=== PATIENT | male | born 1960 | race Caucasian/White ===

== ENCOUNTER 2020-03-19 14:07 | Inpatient (IN) ==
[2020-03-19] MEDS ORDERED: SODIUM CHLORIDE 0.9% 1,000 ML IV STA ×2 (14:35→16:30)
[2020-03-19 14:37] LABS: Basophils # 0.1 10*3/uL (0.0-0.2); Basophils % 0.4 % (0.0-0.8); Eosinophils # 0.1 10*3/uL (0.0-0.87); Eosinophils % 0.3 % (0.00-10.9); Hematocrit 32.4 VOL% (42.0-52.0); Hemoglobin 11.2 GM/DL (14.0-18.0); Immature Granulocytes % 1.3 %; Immature Granulocytes Absolute 0.22 #; Lymphocytes # 0.8 10*3/uL (1.4-4.0); Lymphocytes % 4.6 % (21.2-54.2); Mean Corpuscular HGB Conc 34.6 GM/DL (32-36); Mean Corpuscular Volume 89.8 FL (87-102); Mean Platelet Volume 9.5 FL (9.6-12.0); Monocytes % 10.5 % (1.7-12.7); Neutrophils % 82.9 % (38.7-73.9); Platelet Count 270 T/CUMM (130-400); Red Blood Count 3.61 MC/CUMM (3.8-5.5); Red Cell Distribution Width 12.1 % (9.3-17.3); White Blood Count 16.4 T/CUMM (4-12)
[2020-03-19] MEDS ORDERED: CLINDAMYCIN INJ 900 MG in PREMIX 1 EACH IV STA (14:37)
[2020-03-19] MEDS ORDERED: MORPHINE 4 MG/1 ML VIAL IV STA (14:52)
[2020-03-19 15:05] LABS: Albumin 2.2 G/DL (3.4-5.0); Bilirubin,Total 0.9 MG/DL (0.2-1.0); Calcium 9.4 MG/DL (8.5-10.1); Osmolality,Calculated 270.4 MOS/KG (273-304); Potassium 4.3 MMOL/L (3.5-5.1); Total Protein 7.4 G/DL (6.4-8.3)
[2020-03-19] MEDS ORDERED: VANCOMYCIN INJ 1,500 MG in SODIUM CHLORIDE 0.9% 250 ML IV ONE (16:01)
[2020-03-19 16:26] LABS: INR 1.2; PT Patient Result 12.4 SECS (9.8-11.9)
[2020-03-19] MEDS ORDERED: ONDANSETRON 4 MG/2 ML VIAL IV PRN (16:31)
[2020-03-19] MEDS ORDERED: VANCOMYCIN 1,000 MG VIAL ONE (16:31)
[2020-03-19] MEDS ORDERED: ETOMIDATE 40 MG/20 ML VIAL IV ONE (16:44)
[2020-03-19] MEDS ORDERED: ROCURONIUM 50 MG/5 ML VIAL IV ONE (16:44)
[2020-03-19] MEDS ORDERED: SODIUM CHLORIDE 0.9% 250 ML IV ONE (16:44)
[2020-03-19] MEDS ORDERED: ONDANSETRON 4 MG/2 ML VIAL ONE (16:44)
[2020-03-19] MEDS ORDERED: LIDOCAINE 2% 5 ML VIAL ONE (16:44)
[2020-03-19] MEDS ORDERED: SUCCINYLCHOLINE 200 MG/10 ML VIAL ONE (16:44)
[2020-03-19] MEDS ORDERED: fentaNYL 100 MCG/2 ML VIAL ONE ×3 (16:44→17:32)
[2020-03-19] MEDS ORDERED: MIDAZOLAM 2 MG/2 ML VIAL ONE (16:45)
[2020-03-19] MEDS ORDERED: PHENYLEPHRINE 10 MG/1 ML VIAL IV ONE (16:45)
[2020-03-19 16:46] LABS: Lymphocytes 3 % (20-55); Segmented Neutrophils 90 % (50-85); Total Cells Counted 100
[2020-03-19] MEDS ORDERED: ALBUTEROL/IPRATROPIUM 3 ML NEB RESP TX ONE ×2 (17:53→17:56)
[2020-03-19] MEDS: SODIUM CHLORIDE 0.9% 1,000 ML IV SCH (18:09)
[2020-03-19 22:10] LABS: Bacteria,Urine Occasional /HPF (Few); Bilirubin,Urine Negative (Negative); Blood, Urine Moderate mg/dL (Negative); Glucose,Urine (UA) 150 mg/dL (Negative); Ketones,Urine 5 mg/dL (Negative); Nitrite,Urine Negative (Negative); Protein,Urine Negative; RBC,Urine 10 /HPF (0-4); Squamous Epithelial Cell,Urine Occasional /HPF (0-10); Urine Appearance CLEAR (Clear); Urine Color Yellow (Yellow); Urine Specific Gravity 1.039 (1.001-1.035); WBC,Urine 5 /HPF (0-6)
[2020-03-19] MEDS: HYDROmorphone 2 MG/1 ML VIAL IV PRN (23:55)
[2020-03-20] MEDS: CIPROFLOXACIN INJ 400 MG in PREMIX 1 EACH IV SCH ×3 (00:10→18:00)
[2020-03-20] MEDS: metroNIDAZOLE INJ 500 MG in PREMIX 1 EACH IV SCH ×4 (00:10→17:11)
[2020-03-20] MEDS: SODIUM CHLORIDE 0.9% 1,000 ML IV SCH ×3 (02:53→18:03)
[2020-03-20] MEDS: VANCOMYCIN INJ 1,500 MG in SODIUM CHLORIDE 0.9% 500 ML IV SCH ×2 (04:49→15:00)
[2020-03-20 05:56] LABS: Albumin 1.9 G/DL (3.4-5.0); Bilirubin,Total 0.9 MG/DL (0.2-1.0); Calcium 8.8 MG/DL (8.5-10.1); Osmolality,Calculated 276.4 MOS/KG (273-304); Total Protein 6.6 G/DL (6.4-8.3)
[2020-03-20 07:09] LABS: Basophils # 0.1 10*3/uL (0.0-0.2); Basophils % 0.5 % (0.0-0.8); Eosinophils # 0.1 10*3/uL (0.0-0.87); Hematocrit 34.6 VOL% (42.0-52.0); Hemoglobin 11.5 GM/DL (14.0-18.0); Immature Granulocytes % 1.8 %; Immature Granulocytes Absolute 0.25 #; Lymphocytes # 1.5 10*3/uL (1.4-4.0); Lymphocytes % 10.8 % (21.2-54.2); Mean Corpuscular HGB Conc 33.2 GM/DL (32-36); Mean Corpuscular Volume 92.8 FL (87-102); Mean Platelet Volume 9.9 FL (9.6-12.0); Monocytes % 9.9 % (1.7-12.7); Platelet Count 284 T/CUMM (130-400); Red Blood Count 3.73 MC/CUMM (3.8-5.5); Red Cell Distribution Width 12.2 % (9.3-17.3); White Blood Count 13.6 T/CUMM (4-12)
[2020-03-20 07:30] LABS: Band Neutrophils 6 % (0-10); Eosinophils 3 % (0-10); Hypochromasia 1+; Lymphocytes 14 % (20-55); Segmented Neutrophils 73 % (50-85); Total Cells Counted 100
[2020-03-20 07:31] LABS: Microcytosis Slight; Platelet Estimate Normal; Target Cells Slight
[2020-03-20] MEDS ORDERED: GLUCAGON 1 MG VIAL IM PRN (09:00)
[2020-03-20] MEDS ORDERED: DEXTROSE 50% 25 GM/50 ML VIAL IV PRN (09:00)
[2020-03-20] MEDS: ENOXAPARIN 40 MG/0.4 ML SYRINGE SUBCUT SCH (10:09)
[2020-03-20] MEDS: PANTOPRAZOLE 40 MG TABLET PO SCH (10:10)
[2020-03-20] MEDS ORDERED: ALBUTEROL 2.5 MG/3 ML NEB RESP TX PRN (11:53)
[2020-03-20] MEDS: INSULIN LISPRO 100 UNIT/ML SUBCUT SCH ×2 (16:25→21:23)
[2020-03-20] MEDS: MIRTAZAPINE 15 MG TABLET PO SCH (21:23)
[2020-03-21] MEDS: HYDROmorphone 2 MG/1 ML VIAL IV PRN ×2 (00:26→13:06)
[2020-03-21] MEDS: metroNIDAZOLE INJ 500 MG in PREMIX 1 EACH IV SCH ×3 (00:27→16:25)
[2020-03-21] MEDS: VANCOMYCIN INJ 1,500 MG in SODIUM CHLORIDE 0.9% 500 ML IV SCH ×2 (04:01→16:24)
[2020-03-21] MEDS: CIPROFLOXACIN INJ 400 MG in PREMIX 1 EACH IV SCH ×2 (05:51→17:48)
[2020-03-21] MEDS: SODIUM CHLORIDE 0.9% 1,000 ML IV SCH ×4 (07:14→21:09)
[2020-03-21] MEDS: ENOXAPARIN 40 MG/0.4 ML SYRINGE SUBCUT SCH ×2 (07:47→10:18)
[2020-03-21] MEDS: lisinopriL 20 MG TABLET PO SCH ×2 (07:47→08:03)
[2020-03-21] MEDS: PANTOPRAZOLE 40 MG TABLET PO SCH ×2 (07:47→08:03)
[2020-03-21] MEDS: SODIUM HYPOCHLORITE 0.25% IRRIG 473 ML BOTTLE TOP SCH ×2 (07:53→08:03)
[2020-03-21] MEDS: INSULIN LISPRO 100 UNIT/ML SUBCUT SCH ×4 (07:55→21:06)
[2020-03-21 07:56] LABS: Basophils # 0.1 10*3/uL (0.0-0.2); Basophils % 0.8 % (0.0-0.8); Eosinophils # 0.3 10*3/uL (0.0-0.87); Hematocrit 35.4 VOL% (42.0-52.0); Hemoglobin 11.9 GM/DL (14.0-18.0); Immature Granulocytes % 5.8 %; Immature Granulocytes Absolute 0.56 #; Lymphocytes # 1.3 10*3/uL (1.4-4.0); Lymphocytes % 13.4 % (21.2-54.2); Mean Corpuscular HGB Conc 33.6 GM/DL (32-36); Mean Corpuscular Volume 92.2 FL (87-102); Mean Platelet Volume 9.1 FL (9.6-12.0); Platelet Count 289 T/CUMM (130-400); Red Blood Count 3.84 MC/CUMM (3.8-5.5); Red Cell Distribution Width 12.5 % (9.3-17.3); White Blood Count 9.6 T/CUMM (4-12)
[2020-03-21] MEDS: TIOTROPIUM OLODATEROL INH SCH (08:04)
[2020-03-21 08:15] LABS: Band Neutrophils 4 % (0-10); Eosinophils 6 % (0-10); Lymphocytes 25 % (20-55); Segmented Neutrophils 58 % (50-85); Total Cells Counted 100
[2020-03-21 08:16] LABS: Hypochromasia Slight; Microcytosis Slight; Platelet Estimate Adequate
[2020-03-21 08:24] LABS: Calcium 8.7 MG/DL (8.5-10.1); Osmolality,Calculated 277.7 MOS/KG (273-304); Potassium 3.9 MMOL/L (3.5-5.1)
[2020-03-21] MEDS: MIRTAZAPINE 15 MG TABLET PO SCH (20:55)
[2020-03-22] MEDS: metroNIDAZOLE INJ 500 MG in PREMIX 1 EACH IV SCH ×3 (00:27→17:33)
[2020-03-22] MEDS: VANCOMYCIN INJ 1,500 MG in SODIUM CHLORIDE 0.9% 500 ML IV SCH ×3 (04:42→23:03)
[2020-03-22] MEDS: CIPROFLOXACIN INJ 400 MG in PREMIX 1 EACH IV SCH ×2 (08:13→18:47)
[2020-03-22] MEDS: INSULIN LISPRO 100 UNIT/ML SUBCUT SCH ×4 (08:46→20:57)
[2020-03-22] MEDS: SODIUM HYPOCHLORITE 0.25% IRRIG 473 ML BOTTLE TOP SCH (08:46)
[2020-03-22] MEDS: PANTOPRAZOLE 40 MG TABLET PO SCH (08:46)
[2020-03-22] MEDS: lisinopriL 20 MG TABLET PO SCH (08:46)
[2020-03-22 08:52] LABS: Basophils # 0.1 10*3/uL (0.0-0.2); Basophils % 1.1 % (0.0-0.8); Eosinophils # 0.2 10*3/uL (0.0-0.87); Eosinophils % 3.1 % (0.00-10.9); Hematocrit 37.5 VOL% (42.0-52.0); Hemoglobin 12.7 GM/DL (14.0-18.0); Immature Granulocytes % 7.4 %; Immature Granulocytes Absolute 0.55 #; Lymphocytes # 1.3 10*3/uL (1.4-4.0); Mean Corpuscular HGB Conc 33.9 GM/DL (32-36); Mean Platelet Volume 9.2 FL (9.6-12.0); Monocytes % 9.8 % (1.7-12.7); Neutrophils % 61.6 % (38.7-73.9); Platelet Count 306 T/CUMM (130-400); Red Blood Count 4.12 MC/CUMM (3.8-5.5); Red Cell Distribution Width 12.2 % (9.3-17.3); White Blood Count 7.5 T/CUMM (4-12)
[2020-03-22] MEDS: TIOTROPIUM OLODATEROL INH SCH (08:57)
[2020-03-22 09:04] LABS: Calcium 8.4 MG/DL (8.5-10.1); Potassium 3.8 MMOL/L (3.5-5.1)
[2020-03-22 09:14] LABS: Band Neutrophils 4 % (0-10); Eosinophils 2 % (0-10); Hypochromasia 1+; Lymphocytes 17 % (20-55); Microcytosis 1+; Platelet Estimate Adequate; Segmented Neutrophils 66 % (50-85); Total Cells Counted 100
[2020-03-22] MEDS: ENOXAPARIN 40 MG/0.4 ML SYRINGE SUBCUT SCH (11:17)
[2020-03-22] MEDS: HYDROmorphone 2 MG/1 ML VIAL IV PRN (11:22)
[2020-03-22] MEDS: SODIUM CHLORIDE 0.9% 1,000 ML IV SCH ×2 (12:28→15:29)
[2020-03-22] MEDS: INSULIN NPH/REGULAR 70/30 100 UNIT/ML SUBCUT SCH (16:46)
[2020-03-22] MEDS: MIRTAZAPINE 15 MG TABLET PO SCH (20:57)
[2020-03-23] MEDS: metroNIDAZOLE INJ 500 MG in PREMIX 1 EACH IV SCH ×3 (03:11→16:51)
[2020-03-23] MEDS: CIPROFLOXACIN INJ 400 MG in PREMIX 1 EACH IV SCH ×2 (05:39→18:36)
[2020-03-23] MEDS: INSULIN LISPRO 100 UNIT/ML SUBCUT SCH ×4 (07:50→20:32)
[2020-03-23] MEDS: SODIUM CHLORIDE 0.9% 1,000 ML IV SCH ×3 (07:51→21:37)
[2020-03-23] MEDS: INSULIN NPH/REGULAR 70/30 100 UNIT/ML SUBCUT SCH ×2 (07:51→16:34)
[2020-03-23] MEDS: VANCOMYCIN INJ 1,500 MG in SODIUM CHLORIDE 0.9% 500 ML IV SCH ×2 (08:06→15:32)
[2020-03-23] MEDS: HYDROmorphone 2 MG/1 ML VIAL IV PRN (08:47)
[2020-03-23] MEDS: lisinopriL 20 MG TABLET PO SCH (08:47)
[2020-03-23] MEDS: PANTOPRAZOLE 40 MG TABLET PO SCH (08:48)
[2020-03-23] MEDS: SODIUM HYPOCHLORITE 0.25% IRRIG 473 ML BOTTLE TOP SCH (08:48)
[2020-03-23] MEDS: TIOTROPIUM OLODATEROL INH SCH (09:48)
[2020-03-23] MEDS: ENOXAPARIN 40 MG/0.4 ML SYRINGE SUBCUT SCH (10:43)
[2020-03-23] MEDS: MIRTAZAPINE 15 MG TABLET PO SCH (20:30)
[2020-03-24] MEDS: VANCOMYCIN INJ 1,500 MG in SODIUM CHLORIDE 0.9% 500 ML IV SCH ×3 (00:11→15:14)
[2020-03-24] MEDS: metroNIDAZOLE INJ 500 MG in PREMIX 1 EACH IV SCH ×3 (02:06→17:11)
[2020-03-24] MEDS: SODIUM CHLORIDE 0.9% 1,000 ML IV SCH ×3 (04:27→17:25)
[2020-03-24] MEDS: CIPROFLOXACIN INJ 400 MG in PREMIX 1 EACH IV SCH ×2 (05:58→20:27)
[2020-03-24] MEDS: INSULIN LISPRO 100 UNIT/ML SUBCUT SCH ×4 (08:26→22:11)
[2020-03-24] MEDS: lisinopriL 20 MG TABLET PO SCH (08:26)
[2020-03-24] MEDS: INSULIN NPH/REGULAR 70/30 100 UNIT/ML SUBCUT SCH ×2 (08:26→16:14)
[2020-03-24] MEDS: PANTOPRAZOLE 40 MG TABLET PO SCH (08:27)
[2020-03-24] MEDS: SODIUM HYPOCHLORITE 0.25% IRRIG 473 ML BOTTLE TOP SCH (08:27)
[2020-03-24] MEDS: ACETAMINOPHEN 325 MG TABLET PO PRN ×2 (08:27→18:00)
[2020-03-24] MEDS: HYDROmorphone 2 MG/1 ML VIAL IV PRN ×2 (10:31→20:26)
[2020-03-24] MEDS: TIOTROPIUM OLODATEROL INH SCH (11:02)
[2020-03-24] MEDS: ENOXAPARIN 40 MG/0.4 ML SYRINGE SUBCUT SCH (11:56)
[2020-03-24] MEDS: MIRTAZAPINE 15 MG TABLET PO SCH (20:28)
[2020-03-25] MEDS: VANCOMYCIN INJ 1,500 MG in SODIUM CHLORIDE 0.9% 500 ML IV SCH ×2 (00:59→09:00)
[2020-03-25] MEDS: SODIUM CHLORIDE 0.9% 1,000 ML IV SCH ×2 (01:00→13:22)
[2020-03-25] MEDS: metroNIDAZOLE INJ 500 MG in PREMIX 1 EACH IV SCH ×2 (03:37→08:31)
[2020-03-25] MEDS: CIPROFLOXACIN INJ 400 MG in PREMIX 1 EACH IV SCH (06:27)
[2020-03-25] MEDS: lisinopriL 20 MG TABLET PO SCH (08:31)
[2020-03-25] MEDS: PANTOPRAZOLE 40 MG TABLET PO SCH (08:31)
[2020-03-25] MEDS: TIOTROPIUM OLODATEROL INH SCH (08:32)
[2020-03-25] MEDS: INSULIN LISPRO 100 UNIT/ML SUBCUT SCH ×4 (08:42→21:01)
[2020-03-25] MEDS: INSULIN NPH/REGULAR 70/30 100 UNIT/ML SUBCUT SCH ×2 (09:00→17:51)
[2020-03-25] MEDS: ENOXAPARIN 40 MG/0.4 ML SYRINGE SUBCUT SCH (10:11)
[2020-03-25] MEDS: HYDROmorphone 2 MG/1 ML VIAL IV PRN ×3 (10:12→18:41)
[2020-03-25] MEDS: metroNIDAZOLE 500 MG TABLET PO SCH ×2 (15:12→21:00)
[2020-03-25] MEDS: SODIUM HYPOCHLORITE 0.25% IRRIG 473 ML BOTTLE TOP SCH (15:19)
[2020-03-25] MEDS: MIRTAZAPINE 15 MG TABLET PO SCH (20:59)
[2020-03-25] MEDS: CIPROFLOXACIN 500 MG TABLET PO SCH (21:00)
[2020-03-26] MEDS: SODIUM CHLORIDE 0.9% 1,000 ML IV SCH (02:45)
[2020-03-26 08:28] LABS: Basophils # 0.1 10*3/uL (0.0-0.2); Basophils % 0.9 % (0.0-0.8); Eosinophils # 0.2 10*3/uL (0.0-0.87); Eosinophils % 1.9 % (0.00-10.9); Hematocrit 37.7 VOL% (42.0-52.0); Hemoglobin 12.7 GM/DL (14.0-18.0); Immature Granulocytes % 6.5 %; Immature Granulocytes Absolute 0.65 #; Lymphocytes # 1.8 10*3/uL (1.4-4.0); Lymphocytes % 17.5 % (21.2-54.2); Mean Corpuscular HGB Conc 33.7 GM/DL (32-36); Mean Corpuscular Volume 90.6 FL (87-102); Mean Platelet Volume 11.6 FL (9.6-12.0); Monocytes % 7.7 % (1.7-12.7); Neutrophils % 65.5 % (38.7-73.9); Red Blood Count 4.16 MC/CUMM (3.8-5.5); Red Cell Distribution Width 12.6 % (9.3-17.3); White Blood Count 10.1 T/CUMM (4-12)
[2020-03-26 08:32] LABS: Platelet Count 183 T/CUMM (130-400)
[2020-03-26 08:37] LABS: Band Neutrophils 1 % (0-10); Eosinophils 3 % (0-10); Hypochromasia 1+; Lymphocytes 19 % (20-55); Microcytosis 1+; Platelet Estimate Adequate; Segmented Neutrophils 70 % (50-85); Total Cells Counted 100
[2020-03-26] MEDS: INSULIN NPH/REGULAR 70/30 100 UNIT/ML SUBCUT SCH (10:17)
[2020-03-26] MEDS: lisinopriL 20 MG TABLET PO SCH (10:17)
[2020-03-26] MEDS: CIPROFLOXACIN 500 MG TABLET PO SCH (10:18)
[2020-03-26] MEDS: SODIUM HYPOCHLORITE 0.25% IRRIG 473 ML BOTTLE TOP SCH (10:18)
[2020-03-26] MEDS: PANTOPRAZOLE 40 MG TABLET PO SCH (10:18)
[2020-03-26] MEDS: metroNIDAZOLE 500 MG TABLET PO SCH (10:18)
[2020-03-26] MEDS: INSULIN LISPRO 100 UNIT/ML SUBCUT SCH (10:21)
[2020-03-26] MEDS: HYDROmorphone 2 MG/1 ML VIAL IV PRN (11:33)
[2020-03-26 11:37] VITALS: BP 161/71
[2020-03-26] MEDS: ENOXAPARIN 40 MG/0.4 ML SYRINGE SUBCUT SCH (12:13)
[2020-03-26] MEDS: TIOTROPIUM OLODATEROL INH SCH (12:13)
== END 2020-03-26 12:15 | disposition home health service (06) | DRG 857 ==
LOC: EDUNIT# → EDBD → N.ED 14:07 → N.3E 16:31
PROVIDERS: ADMIT Student in an Organized Health Care Education/Training Program; ATTEND Student in an Organized Health Care Education/Training Program

== ENCOUNTER 2021-07-10 08:05 | Inpatient (IN) ==
[2021-07-10] MEDS ORDERED: ONDANSETRON 4 MG/2 ML VIAL IV STA (09:19)
[2021-07-10] MEDS ORDERED: HYDROmorphone 1 MG/1 ML SYRINGE IV STA (09:19)
[2021-07-10] MEDS ORDERED: SODIUM CHLORIDE 0.9% 500 ML IV STA (09:19)
[2021-07-10 09:56] LABS: Basophils # 0.1 10*3/uL (0.0-0.2); Basophils % 0.5 % (0.0-0.8); Eosinophils # 0.2 10*3/uL (0.0-0.87); Eosinophils % 1.5 % (0.00-10.9); Hematocrit 39.6 VOL% (42.0-52.0); Hemoglobin 13.6 GM/DL (14.0-18.0); Immature Granulocytes % 0.6 %; Immature Granulocytes Absolute 0.07 #; Lymphocytes # 1.2 10*3/uL (1.4-4.0); Lymphocytes % 10.4 % (21.2-54.2); Mean Corpuscular HGB Conc 34.3 GM/DL (32-36); Mean Corpuscular Volume 93.2 FL (87-102); Mean Platelet Volume 10.1 FL (9.6-12.0); Monocytes % 8.2 % (1.7-12.7); Neutrophils % 78.8 % (38.7-73.9); Platelet Count 192 T/CUMM (130-400); Red Blood Count 4.25 MC/CUMM (3.8-5.5); Red Cell Distribution Width 12.5 % (9.3-17.3); White Blood Count 11.7 T/CUMM (4-12)
[2021-07-10 10:16] LABS: Albumin 2.5 G/DL (3.4-5.0); Bilirubin,Total 0.9 MG/DL (0.20-1.00); Calcium 8.8 MG/DL (8.5-10.1); Osmolality,Calculated 277.1 MOS/KG (273-304); Total Protein 7.1 G/DL (6.4-8.2)
[2021-07-10] MEDS ORDERED: CLINDAMYCIN INJ 900 MG/50 ML PREMIX IV ONE (11:00)
[2021-07-10] MEDS ORDERED: ALBUTEROL/IPRATROPIUM 3 ML NEB RESP TX PRN (11:04)
[2021-07-10] MEDS ORDERED: HYDROmorphone 1 MG/1 ML SYRINGE IV PRN (11:04)
[2021-07-10] MEDS ORDERED: KETOROLAC 30 MG/1 ML VIAL IV PRN (11:04)
[2021-07-10] MEDS ORDERED: ONDANSETRON 4 MG/2 ML VIAL IV PRN ×2 (11:04→17:10)
[2021-07-10] MEDS ORDERED: ACETAMINOPHEN 325 MG TABLET PO PRN (11:04)
[2021-07-10] MEDS ORDERED: GLUCAGON 1 MG VIAL IM PRN (11:09)
[2021-07-10] MEDS ORDERED: DEXTROSE 10% 250 ML BAG IV PRN (11:12)
[2021-07-10] MEDS: LACTATED RINGERS 1,000 ML IV SCH ×2 (11:51→19:25)
[2021-07-10] MEDS: HYDROmorphone 1 MG/1 ML SYRINGE IV PRN ×5 (11:51→19:25)
[2021-07-10] MEDS: INSULIN LISPRO 100 UNIT/ML SUBCUT SCH ×3 (12:20→20:48)
[2021-07-10] MEDS ORDERED: BUPIVACAINE MPF 0.25% 30 ML VIAL ONE (12:29)
[2021-07-10] MEDS ORDERED: LIDOCAINE 1%/EPI INJ 20 ML VIAL ONE (12:29)
[2021-07-10] MEDS: metroNIDAZOLE INJ 500 MG/100 ML PREMIX IV SCH ×2 (12:38→20:39)
[2021-07-10] MEDS: LEVOFLOXACIN INJ 750 MG/150 ML PREMIX IV SCH (14:15)
[2021-07-10] MEDS ORDERED: fentaNYL 100 MCG/2 ML VIAL ONE ×2 (14:34→16:34)
[2021-07-10] MEDS ORDERED: MIDAZOLAM 2 MG/2 ML VIAL ONE (14:34)
[2021-07-10] MEDS ORDERED: LIDOCAINE 2% 5 ML VIAL ONE (14:34)
[2021-07-10] MEDS ORDERED: propofoL 200 MG/20 ML VIAL IV ONE (14:34)
[2021-07-10] MEDS ORDERED: SEVOFLURANE 1 UNIT/15 MINUTE INH ONE (15:13)
[2021-07-10] MEDS ORDERED: ACETAMINOPHEN INJ 1,000 MG/100 ML VIAL IV ONE (15:13)
[2021-07-10] MEDS ORDERED: PHENYLEPHRINE 1 MG/10 ML SYRINGE IV ONE ×2 (15:13→15:37)
[2021-07-10] MEDS ORDERED: ONDANSETRON 4 MG/2 ML VIAL ONE (15:23)
[2021-07-10] MEDS ORDERED: LACTATED RINGERS 1,000 ML IV ONE (15:48)
[2021-07-10] MEDS ORDERED: PHENYLEPHRINE 10 MG/1 ML VIAL IV ONE (15:54)
[2021-07-10] MEDS ORDERED: SODIUM CHLORIDE 0.9% 250 ML IV ONE (15:54)
[2021-07-10] MEDS ORDERED: MEPERIDINE 25 MG/1 ML VIAL IV PRN (17:22)
[2021-07-10] MEDS ORDERED: MEPERIDINE 25 MG/1 ML VIAL ONE (17:23)
[2021-07-11] MEDS: HYDROmorphone 1 MG/1 ML SYRINGE IV PRN ×2 (02:26→23:39)
[2021-07-11] MEDS: LACTATED RINGERS 1,000 ML IV SCH ×2 (03:25→16:44)
[2021-07-11] MEDS: metroNIDAZOLE INJ 500 MG/100 ML PREMIX IV SCH ×3 (03:26→20:32)
[2021-07-11 07:36] LABS: Basophils # 0.1 10*3/uL (0.0-0.2); Basophils % 0.5 % (0.0-0.8); Eosinophils # 0.1 10*3/uL (0.0-0.87); Eosinophils % 1.2 % (0.00-10.9); Hematocrit 37.5 VOL% (42.0-52.0); Immature Granulocytes % 0.5 %; Immature Granulocytes Absolute 0.06 #; Lymphocytes # 1.1 10*3/uL (1.4-4.0); Mean Corpuscular HGB Conc 34.7 GM/DL (32-36); Mean Corpuscular Volume 92.4 FL (87-102); Mean Platelet Volume 9.5 FL (9.6-12.0); Monocytes % 9.4 % (1.7-12.7); Neutrophils % 78.4 % (38.7-73.9); Platelet Count 188 T/CUMM (130-400); Red Blood Count 4.06 MC/CUMM (3.8-5.5); Red Cell Distribution Width 12.4 % (9.3-17.3)
[2021-07-11 07:55] LABS: Calcium 8.7 MG/DL (8.5-10.1); Osmolality,Calculated 273.1 MOS/KG (273-304); Potassium 3.9 MMOL/L (3.5-5.1)
[2021-07-11] MEDS ORDERED: MAGNESIUM SULF RIDER 4 GM/100 ML PREMIX IV ONE (08:10)
[2021-07-11] MEDS: INSULIN LISPRO 100 UNIT/ML SUBCUT SCH ×4 (08:44→20:29)
[2021-07-11] MEDS: PANTOPRAZOLE 40 MG TABLET PO SCH (08:44)
[2021-07-11] MEDS: SODIUM HYPOCHLORITE 0.25% IRRIG 473 ML BOTTLE TOP SCH (10:20)
[2021-07-11] MEDS: LEVOFLOXACIN INJ 750 MG/150 ML PREMIX IV SCH (13:42)
[2021-07-12] MEDS: LACTATED RINGERS 1,000 ML IV SCH ×4 (03:27→19:21)
[2021-07-12] MEDS: metroNIDAZOLE INJ 500 MG/100 ML PREMIX IV SCH (03:28)
[2021-07-12 06:22] LABS: Basophils % 0.4 % (0.0-0.8); Eosinophils # 0.3 10*3/uL (0.0-0.87); Eosinophils % 3.1 % (0.00-10.9); Hemoglobin 12.3 GM/DL (14.0-18.0); Immature Granulocytes % 0.9 %; Immature Granulocytes Absolute 0.08 #; Lymphocytes # 1.1 10*3/uL (1.4-4.0); Lymphocytes % 11.8 % (21.2-54.2); Mean Corpuscular HGB Conc 34.2 GM/DL (32-36); Mean Platelet Volume 9.7 FL (9.6-12.0); Monocytes % 10.4 % (1.7-12.7); Neutrophils % 73.4 % (38.7-73.9); Platelet Count 192 T/CUMM (130-400); Red Blood Count 3.83 MC/CUMM (3.8-5.5); Red Cell Distribution Width 12.2 % (9.3-17.3); White Blood Count 9.1 T/CUMM (4-12)
[2021-07-12 06:41] LABS: Calcium 8.1 MG/DL (8.5-10.1); Potassium 4.2 MMOL/L (3.5-5.1)
[2021-07-12 06:53] LABS: Risk Ratio 4.03; Thyroid Stimulating Hormone 0.584 uIU/ml (0.358-3.74); VLDL Cholesterol 19.2 MG/DL
[2021-07-12] MEDS ORDERED: MAGNESIUM SULF RIDER 2 GM/50 ML PREMIX IV ONE (08:00)
[2021-07-12] MEDS: PANTOPRAZOLE 40 MG TABLET PO SCH (08:09)
[2021-07-12] MEDS: SODIUM HYPOCHLORITE 0.25% IRRIG 473 ML BOTTLE TOP SCH (08:10)
[2021-07-12] MEDS: INSULIN LISPRO 100 UNIT/ML SUBCUT SCH ×4 (08:10→21:33)
[2021-07-12] MEDS: CLINDAMYCIN INJ 600 MG/50 ML PREMIX IV SCH ×2 (11:37→18:25)
[2021-07-12] MEDS: NICOTINE 21 MG/24 HR PATCH TRANSDERM SCH (11:38)
[2021-07-12] MEDS: LEVOFLOXACIN INJ 750 MG/150 ML PREMIX IV SCH (12:15)
[2021-07-13] MEDS: CLINDAMYCIN INJ 600 MG/50 ML PREMIX IV SCH ×2 (03:24→10:35)
[2021-07-13] MEDS: LACTATED RINGERS 1,000 ML IV SCH (05:13)
[2021-07-13] MEDS: PANTOPRAZOLE 40 MG TABLET PO SCH (09:10)
[2021-07-13] MEDS: INSULIN LISPRO 100 UNIT/ML SUBCUT SCH (09:10)
[2021-07-13] MEDS: SODIUM HYPOCHLORITE 0.25% IRRIG 473 ML BOTTLE TOP SCH (09:10)
[2021-07-13 10:26] LABS: Basophils # 0.1 10*3/uL (0.0-0.2); Basophils % 0.6 % (0.0-0.8); Eosinophils # 0.4 10*3/uL (0.0-0.87); Eosinophils % 4.1 % (0.00-10.9); Hematocrit 38.3 VOL% (42.0-52.0); Hemoglobin 13.3 GM/DL (14.0-18.0); Immature Granulocytes % 1.4 %; Immature Granulocytes Absolute 0.12 #; Lymphocytes # 1.4 10*3/uL (1.4-4.0); Lymphocytes % 16.7 % (21.2-54.2); Mean Corpuscular HGB Conc 34.7 GM/DL (32-36); Mean Corpuscular Volume 92.5 FL (87-102); Mean Platelet Volume 9.7 FL (9.6-12.0); Monocytes % 11.6 % (1.7-12.7); Neutrophils % 65.6 % (38.7-73.9); Platelet Count 247 T/CUMM (130-400); Red Blood Count 4.14 MC/CUMM (3.8-5.5); Red Cell Distribution Width 12.4 % (9.3-17.3); White Blood Count 8.6 T/CUMM (4-12)
[2021-07-13 10:48] LABS: Calcium 8.7 MG/DL (8.5-10.1); Osmolality,Calculated 278.1 MOS/KG (273-304); Potassium 4.1 MMOL/L (3.5-5.1)
[2021-07-13] MEDS: NICOTINE 21 MG/24 HR PATCH TRANSDERM SCH (11:07)
[2021-07-13] MEDS ORDERED: MAGNESIUM SULF RIDER 2 GM/50 ML PREMIX IV ONE (11:29)
[2021-07-13 11:43] VITALS: BP 138/76
== END 2021-07-13 12:10 | disposition home health service (06) | DRG 982 ==
LOC: N.ED 08:05 → N.EDINP 11:04 → N.3E 14:47
PROVIDERS: ADMIT Surgery; ATTEND Surgery